=== PATIENT | female | born 1950 | race Asian ===

== ENCOUNTER 2022-08-18 17:55 | Emergency (ER) | payer MEDICARE, OTHER ==
[~2022-08-18] VITALS: Ht 157.5 cm; Wt 62.3 kg
[~2022-08-18 17:55] MED LIST: AMLO-257 PO; ATOR10TA PO; HYDR25TA GT
[2022-08-18 18:04] VITALS: BP 161/70
[2022-08-18] MEDS ORDERED: BEBTELOVIMAB (EUA) 175 MG/2 ML VIAL IVP ONE (18:30)
[2022-08-18] MEDS ORDERED: HYDR25TA2 PO (18:33)
[2022-08-18] MEDS ORDERED: ACETAMINOPHEN 325 MG TABLET PO ONE (19:15)
== END 2022-08-18 21:00 | disposition home or self-care (01) ==
LOC: EMS 17:56
DX: U07.1 COVID-19 (principal); I10 Essential (primary) hypertension; E78.00 Pure hypercholesterolemia, unspecified; Z88.8 Allergy status to other drugs, medicaments and biological substances; Z79.899 Other long term (current) drug therapy
CPT/HCPCS: 99283; 71045; Q0222; M0222